=== PATIENT | female | born 1990 | race Caucasian/White ===

== ENCOUNTER → 2022-01-31 | Outpatient (CLI) | payer OTHER | LOC: COL.RAD 10:49 | DX: M47.816 Spondylosis without myelopathy or radiculopathy, lumbar region (principal); M48.061 Spinal stenosis, lumbar region without neurogenic claudication; M48.07 Spinal stenosis, lumbosacral region; D18.09 Hemangioma of other sites ==

== ENCOUNTER 2022-04-18 09:11 | Outpatient (CLI) | payer OTHER ==
[2022-04-18] VITALS (7 sets, daily range): BP systolic 104–119; BP diastolic 73–84; PULSE 65–76; TEMP 98.3
[~2022-04-18] VITALS: Ht 165.1 cm; Wt 104.7 kg
[~2022-04-18 09:11] MED LIST: MASON NATURAL1200 MG PO; NEURONTIN300 MG/CAP PO; VITAMIN D 400400 IU PO; VOLTAREN 75 DR75 MG PO; ZOLOFT 50MG50 MG PO
--- NOTE | 2022-04-18 11:09 | NUR ---
Dr Camp into talk with pt. Informed pt that this is not a mass that can be reached via ct for a biopsy, biopsy canceled. Pt back to holding area. to room Int removed catheter tip intact. 2x2 and coban to site. Pt dressed. Pt and escorted to elevator.
[2022-04-18 11:34] LABS: GLUCOSE,CSF 59 mg/dL (40-70); TOTAL PROTEIN,CSF 27 mg/dL (15-45)
[2022-04-18 11:38] LABS: CSF COLOR COLORLESS
[2022-04-18 11:39] LABS: CSF APPEARANCE CLEAR; CSF RBC 15 /mm3 (0-0)
--- NOTE | 2022-04-18 12:10 | NUR ---
Pt states she is feeling well and ready to discharge home to rest. She is encouraged to continue to push PO fluids, rest and take tylenol as needed for headache. Return precautions reviewed with DC instructions, she expresses understanding. Bandaid over LP site remains clean, dry and intact. She is assisted up to restroom, gait steady. She is assisted out to 's car by wheelchair with belongings.
[2022-04-18 12:28] LABS: CSF MONONUCLEAR 100 % (70-100); CSF POLYMORPHONUCLEAR 0 % (0-6)
[2022-04-21 11:30] LABS: ALBUMIN CSF 12.7 mg/dL (<=27.0); ALBUMUN SERUM 4600 mg/dL (())
[2022-04-21 11:33] LABS: IGG,SERUM 1260 mg/dL (()); IGG/ALBUMIN SERUM 0.27 (<=0.40)
[2022-04-21 11:38] LABS: CSF IGG/ALBUMIN 0.14 (<=0.21); CSF,IGG 1.8 mg/dL (<=8.1); CSF-IGG INDEX 0.52 (<=0.85)
[2022-04-21 14:13] LABS: CSF OLIG BD INTERPRETATION 0 bands (<2); SE OLIGOCLONAL BANDING 0 bands (())
== END 2022-04-18 12:15 | disposition home or self-care (01) ==
LOC: COL.RAD 09:11
PROVIDERS: Psychiatry & Neurology Neurology
DX: G43.919 Migraine, unspecified, intractable, without status migrainosus (principal)

== ENCOUNTER → 2022-05-05 | Outpatient (CLI) | payer OTHER | LOC: COL.RAD 08:52 | DX: M50.222 Other cervical disc displacement at C5-C6 level (principal) | CPT/HCPCS: Q9967 ==